=== PATIENT | female | born 1985 | race Caucasian/White ===

== ENCOUNTER 2022-09-04 12:25 | Emergency (ER) | payer MEDICAID ==
[~2022-09-04] VITALS: Ht 167.6 cm; Wt 89.0 kg
[2022-09-04 18:18] VITALS: BP 133/79
== END 2022-09-04 18:43 | disposition home or self-care (01) ==
LOC: ER 12:25
DX: R00.2 Palpitations (principal); E11.9 Type 2 diabetes mellitus without complications; I10 Essential (primary) hypertension
CPT/HCPCS: 82962; 93005; 99283